=== PATIENT | female | born 1965 | race American Indian/Alaskan Native ===

== ENCOUNTER → 2019-12-30 10:47 | Outpatient (CLI) | payer OTHER, SELFPAY ==
--- NOTE | 2019-12-30 11:13 | DI.RAD.S_ITS ---
PROCEDURE: XR SHOULDER RT MIN 2V INDICATIONS: Back/Rt Shoulder/Lt knee pain TECHNIQUE: 3 views of the shoulder were acquired. COMPARISON: None. FINDINGS: Bones: No fractures or dislocations. No suspicious bony lesions. There is [id number] acromioclavicular and glenohumeral joint degeneration. Visualized ribs appear intact. Soft tissues: No suspicious soft tissue calcifications. IMPRESSION: [id number]-qo-fewodkfp degenerative joint disease. Dictated by: Maxwell Reeves M.D. on 12/30/2019 at 17:17 Approved by: Maxwell Reeves M.D. on 12/30/2019 at 17:20
--- NOTE | 2019-12-30 11:13 | DI.RAD.S_ITS ---
PROCEDURE: XR KNEE LT 1TO2V INDICATIONS: Back/Rt Shoulder/Lt knee pain TECHNIQUE: 2 views of the knee were acquired. COMPARISON: None. FINDINGS: Bones: No fractures or dislocations. No suspicious bony lesions. Mild tricompartmental knee joint degeneration. Soft tissues: Small joint effusion may be present. No suspicious soft tissue calcifications. IMPRESSION: 1. Mild degenerative joint disease. 2. Possible small knee joint effusion. Dictated by: Maxwell Reeves M.D. on 12/30/2019 at 17:11 Approved by: Maxwell Reeves M.D. on 12/30/2019 at 17:15
--- NOTE | 2019-12-30 11:13 | DI.RAD.S_ITS ---
PROCEDURE: XR LUMBAR SPINE 2-3V INDICATIONS: Back/Rt Shoulder/Lt knee pain TECHNIQUE: 3 views of the lumbar spine were acquired. COMPARISON: None. FINDINGS: Bones: 5 [id number]-[id number] vertebrae are present. There is normal bony alignment. No vertebral body compression fractures. No suspicious bony lesions. There is moderate degenerative disc disease and facet arthropathy at L3-L4, L4-L5 and L5-S1. Soft tissues: Overlying bowel gas pattern is normal. No suspicious soft tissue calcifications. Cholecystectomy clips are noted. IMPRESSION: Moderate degenerative disc and facet disease in lumbar spine. Dictated by: Maxwell Reeves M.D. on 12/30/2019 at 17:15 Approved by: Maxwell Reeves M.D. on 12/30/2019 at 17:17
== END ==
DX: M25.511 Pain in right shoulder (principal); M19.011 Primary osteoarthritis, right shoulder; M17.0 Bilateral primary osteoarthritis of knee; M54.9 Dorsalgia, unspecified; M51.36 Other intervertebral disc degeneration, lumbar region; M51.37 Other intervertebral disc degeneration, lumbosacral region; M47.816 Spondylosis without myelopathy or radiculopathy, lumbar region; M47.817 Spondylosis without myelopathy or radiculopathy, lumbosacral region; I10 Essential (primary) hypertension; M79.671 Pain in right foot; M79.672 Pain in left foot
CPT/HCPCS: 72100; 73030; 73560